=== PATIENT | female | born 1965 | race Two or more races ===

== ENCOUNTER 2017-04-12 07:51 | Emergency (ER) | payer SELFPAY ==
[2017-04-12 08:03] VITALS: BP 159/92; PULSE 81; TEMP 98.5; BMI 29.0
--- NOTE | 2017-04-12 08:23 | PDOC ---
History of Present Illness - General Chief Complaint: Allergic Reaction Stated Complaint: RASH Time Seen by Provider: 04/12/17 08:18 History Source: Patient Exam Limitations: No Limitations - History of Present Illness Initial Comments: 04/12/17 08:40 Patient came to emergency department for evaluation of rash to face that is coming and going but appears now to be spreading over the past 3 weeks. States started on her left cheek and has become more erythematous been spreading up to left orbit and around chin. States is both painful mildly and itching. But now is spreading lesions to her back and her neck. Patient has no rash to her extremities or torso. Patient is uncertain as to cause, is here visiting for the past 1 month from [place] and states did not have the rash there. Has not used any new creams, lotions, soaps, hair products or facial applications. States is used she brother but uses shape rather regularly on her skin. No one else in the house is ill with a rash, has taken 2 Benadryl's with minimal resolved. Denies facial swelling tongue swelling or problems breathing. Denies chest pain palpitations shortness of breath or wheezing. Has no previous illness or ALLERGIES. Denies pollen or seasonal ALLERGIES although is visiting from [place]. Has never had a rash of this sort 04/12/17 09:30 04/12/17 14:13 Severity: reports: mild, moderate Possible Cause: Yes: no prior episodes. No: allergen exposure Associated Symptoms: reports: denies symptoms. denies: chest pain/soreness, cough, dizziness, fever/chills, headache, nasal congestion, shortness of breath , sore throat, wheezing Past History - Travel Traveled outside of the country in the last 30 days: Yes If so, where?: from [place] Close contact w/someone who was outside of country & ill: No - Past Medical History Allergies/Adverse Reactions: Allergies Allergy/AdvReac Type Severity Reaction Status Date / Time No Known Allergies Allergy Verified 04/12/17 08:01 Home Medications: Ambulatory Orders NK [No Known Home Medication] 04/12/17 HTN: Yes - Suicide/Smoking/Psychosocial Hx Smoking History: Never smoked Hx Alcohol Use: No Drug/Substance Use Hx: No Substance Use Type: None Respiratory Specific PMHX - Complaint Specific PMHX Bronchitis: No Pneumonia: No Review of Systems - Review of Systems Able to Perform ROS?: Yes Is the patient limited Senegalese proficient: Yes Constitutional: Yes: See HPI. No: Symptoms Reported, Chills, Fever, Malaise HEENTM: Yes: See HPI. No: Symptoms Reported, Nose Congestion, Throat Swelling, Mouth Swelling Respiratory: Yes: See HPI Integumentary: Yes: Symptoms Reported, See HPI, Erythema, Flushing, Lesions, Pruritus, Rash Neurological: Yes: See HPI. No: Symptoms reported, Headache All Other Systems: Reviewed and Negative *Physical Exam - Vital Signs Last Vital Signs Temp Pulse Resp BP Pulse Ox 98.5 F 81 18 159/92 100 04/12/17 07:59 04/12/17 07:59 04/12/17 07:59 04/12/17 07:59 04/12/17 07:59 - Physical Exam General Appearance: Yes: Nourished, Appropriately Dressed, Apparent Distress, Mild Distress HEENT: positive: EOMI, ORIANA, Normal ENT Inspection, Normal Voice, TMs Normal, Pharynx Normal (nop swelling ), Rhinorrhea. negative: Pharyngeal Erythema Neck: positive: Supple. negative: Tender, Lymphadenopathy (R), Lymphadenopathy (L) Respiratory/Chest: positive: Lungs Clear, Normal Breath Sounds. negative: Wheezing Gastrointestinal/Abdominal: positive: Soft. negative: Tender Musculoskeletal: negative: Normal Inspection, CVA Tenderness Extremity: positive: Normal Capillary Refill, Normal Inspection Integumentary: positive: Erythema (blanching ), Rash (macular papular rash in several groups, and patches of erythema that blanches. Has a few pustular lesions, nonspecific and not patterning. Has also some excoriated and care denies patches to neck and back with well circumscribed borders consistent with appearance of tinea.). negative: Normal Color Neurologic: positive: health care technician II-XII NML intact, Fully Oriented, Alert, Normal Mood/ Affect, Normal Response, Motor Strength 5/5 Progress Note - Progress Note Progress Note: dermatitis unknown etiology. Given one dose of Kenalog for a longer acting steroid to help resolve some of the inflammatory appearance on face and encouraged use of clotrimazole on lesions to back and neck. Given phone number to [facility] as patient is visiting and has no [place] insurance. Encouraged to return to emergency Department for worsening of rash, fevers or other symptomatology. *DC/Admit/Observation/Transfer Diagnosis at time of Disposition: Rash and nonspecific skin eruption - Discharge Dispostion Disposition: HOME Condition at time of disposition: Stable Admit: No - Referrals Referrals: [facility] [Provider Group] - Patient Instructions Printed Discharge Instructions: DI for Rash Additional Instructions: Rest, keep cool and dry- avoid strenuous activity or hot /humid environments Less hot showers, no abrasive soaps May use heavy creams like Eucerin or Cetaphil to keep skin moist May apply Aveeno, calamine lotion, [id number] hydrocortisone creams as needed for symptoms May use Benadryl at night for antihistamine, Zyrtec/ Charmaine or Claritin for daytime antihistamine use to help with itching Use Chlortrimazole cream twice a day on lesions until resolved Try to identify cause for rash and avoid exposures Followup with PMD in one week if no resolution Make appointment with career development director for evaluation when possible You have been given Kenalog-40 injection as 1 time dose of steroid long-acting today
[2017-04-12] MEDS ORDERED: TRIAMCINOLONE ACET 40MG/1ML VIAL ONE (08:33)
[2017-04-12] MEDS ORDERED: TRIAMCINOLONE ACET 40MG/1ML VIAL IM ONE (08:36)
== END 2017-04-12 08:39 | disposition home or self-care (01) ==
LOC: JER 07:51 → JERFT 07:51
PROC: 3E0233Z Introduction of Anti-inflammatory into Muscle, Percutaneous Approach (ICD-10-PCS; principal; 2017-04-12)
DX: L30.9 Dermatitis, unspecified (principal)
CPT/HCPCS: 99281-25